=== PATIENT | female | born 1965 | race Two or more races ===

== ENCOUNTER 2023-12-25 20:38 | Emergency (ER) | payer OTHER ==
[~2023-12-25] VITALS: Ht 162.6 cm; Wt 90.7 kg
[2023-12-25] MEDS ORDERED: DIPHENHYDRAMINE HCL 50 MG/ML VIAL 1ML IM ONE (21:00)
[2023-12-25] MEDS ORDERED: METHYLPREDNISOLONE SOD SUCC 40 MG VIAL IM ONE (21:00)
== END 2023-12-25 21:19 | disposition home or self-care (01) ==
LOC: ER 20:38
DX: R21 Rash and other nonspecific skin eruption (principal); T78.40XA Allergy, unspecified, initial encounter; E11.9 Type 2 diabetes mellitus without complications; Z91.041 Radiographic dye allergy status
CPT/HCPCS: 96372; 99282; J1200; J3490